=== PATIENT | female | born 1940 | race Caucasian/White ===

== ENCOUNTER 2021-05-04 09:35 | Day surgery (SDC) | payer MEDICARE, OTHER ==
[2021-05-04] VITALS (16 sets, daily range): BP systolic 117–165; BP diastolic 49–77
[~2021-05-04] VITALS: Ht 162.6 cm; Wt 74.8 kg
[2021-05-04 10:23] LABS: BASOPHILS % (AUTO) 0.6 % (0-1); EOSINOPHILS # (AUTO) 0.2 X10'3 (0-0.9); EOSINOPHILS % (AUTO) 1.9 % (0-6); HEMATOCRIT 41.2 % (35.0-45.0); HEMOGLOBIN 13.9 g/dl (12.0-16.0); LYMPHOCYTES # (AUTO) 1.9 X10'3 (1.1-4.8); LYMPHOCYTES % (AUTO) 23.1 % (21-51); MEAN CORPUSCULAR HEMOGLOBIN 26.9 PG (27.0-31.0); MEAN CORPUSCULAR HGB CONC 33.7 g/dL (33.0-36.5); MEAN CORPUSCULAR VOLUME 79.8 FL (78-98); MEAN PLATELET VOLUME 8.6 FL (7.4-10.4); MONOCYTES # (AUTO) 0.6 X10'3 (0-0.9); MONOCYTES % (AUTO) 7.1 % (2-12); NEUTROPHILS # (AUTO) 5.5 X10'3 (1.8-7.7); NEUTROPHILS % (AUTO) 67.3 % (42-75); PLATELET COUNT 174 X10'3 (140-440); RED BLOOD COUNT 5.16 X10'6 (4.20-5.60); RED CELL DISTRIBUTION WIDTH 14.8 % (11.5-14.5); WHITE BLOOD COUNT 8.1 X10'3 (4.5-11.0)
[2021-05-04 11:20] LABS: ALBUMIN 4.5 G/DL (3.4-5.0); ANION GAP 16 (8-16); BLOOD UREA NITROGEN 21 MG/DL (7-18); BUN/CREATININE RATIO 19.3 (6.6-38.0); CALCIUM 9.7 MG/DL (8.5-10.1); CHLORIDE 103 MMOL/L (99-107); CREATININE 1.09 MG/DL (0.40-0.90); GLUCOSE 187 MG/DL (70-104); POTASSIUM 4.4 MMOL/L (3.5-5.1); SODIUM 143 MMOL/L (135-145); TOTAL CARBON DIOXIDE 24.3 MMOL/L (24-32); eGFR 48 ML/MIN
[2021-05-04] MEDS ORDERED: METF-438 PO (11:23)
[2021-05-04] MEDS ORDERED: VIT1CAPS9 PO (11:23)
[2021-05-04] MEDS ORDERED: CLON0.1T2 PO (11:23)
[2021-05-04] MEDS ORDERED: LISI40TA13 PO (11:23)
[2021-05-04] MEDS ORDERED: LEVO100T9 PO (11:23)
[2021-05-04] MEDS ORDERED: ROSU10TA28 PO (11:23)
[2021-05-04] MEDS ORDERED: CARV6.2553 PO (11:23)
[2021-05-04] MEDS ORDERED: CHOL400T58 PO (11:23)
[2021-05-04] MEDS ORDERED: NIFE-33 PO (11:23)
[2021-05-04] MEDS ORDERED: GLIP10TA11 PO (11:23)
[2021-05-04] MEDS ORDERED: fentaNYL/PF 50MCG/1 ML 2ML syringe IV ONE (12:10)
[2021-05-04] MEDS ORDERED: morphine 10mg/ml inj. IV ONE (12:10)
[2021-05-04] MEDS ORDERED: MIDAZolam 1mg/ml 10ml vial IV ONE (12:10)
== END 2021-05-04 14:00 | disposition home or self-care (01) ==
LOC: SSTAY O 09:35
PROVIDERS: ATTEND Internal Medicine Cardiovascular Disease
DX: I34.0 Nonrheumatic mitral (valve) insufficiency (principal); I10 Essential (primary) hypertension; E11.9 Type 2 diabetes mellitus without complications; E78.5 Hyperlipidemia, unspecified; I47.1 Supraventricular tachycardia; E03.9 Hypothyroidism, unspecified; M54.30 Sciatica, unspecified side; H81.09 Meniere's disease, unspecified ear; Z98.890 Other specified postprocedural states; Z79.899 Other long term (current) drug therapy; Z79.84 Long term (current) use of oral hypoglycemic drugs; Z88.0 Allergy status to penicillin; Z88.2 Allergy status to sulfonamides
CPT/HCPCS: 36415; 80048; 82948; 85025; 93312; 93325; 94760; 94799; J2250; J2274; 93308